=== PATIENT | female | born 1975 | race Caucasian/White ===

== ENCOUNTER → 2019-02-03 | Day surgery (SDC) | payer BC ==
[2019-01-29 14:08] LABS: BASOPHILS # (AUTO) 0.1 (0.0-0.1); BASOPHILS % 0.9 % (0.0-1.0); EOSINOPHILS # (AUTO) 0.6 (0.0-0.4); EOSINOPHILS % 4.8 % (0.0-6.0); HEMATOCRIT 42.1 % (34.2-44.1); HEMOGLOBIN 14.1 g/dL (12.0-16.0); LYMPHOCYTES % 34.6 % (18.0-39.1); MEAN CORPUSCULAR HEMOGLOBIN 29.7 pg (28-32); MEAN CORPUSCULAR HGB CONC 33.5 g/dL (31-35); MEAN CORPUSCULAR VOLUME 88.6 fL (81-99); MONOCYTES # (AUTO) 0.9 (0.2-0.8); MONOCYTES % 7.8 % (4.4-11.3); NEUTROPHILS # (AUTO) 5.9 (2.1-6.9); NEUTROPHILS % 51.7 % (38.7-80.0); PLATELET COUNT 423 x10e3/uL (140-360); RED BLOOD COUNT 4.75 x10e6/uL (3.6-5.1); RED CELL DISTRIBUTION WIDTH 11.8 % (11.7-14.4)
[2019-01-29 14:25] LABS: ANION GAP 10.9 mmol/L (8-16); BLOOD UREA NITROGEN 13 mg/dL (7-26); BUN/CREATININE RATIO 16 (6-25); CALCIUM 9.8 mg/dL (8.4-10.2); CARBON DIOXIDE 26 mmol/L (22-29); CHLORIDE 102 mmol/L (98-107); CREATININE, SERUM 0.81 mg/dL (0.57-1.11); EST GLOMERULAR FILTRATION RATE > 60 ML/MIN (60-); GLUCOSE 84 mg/dL (74-118); POTASSIUM 3.9 mmol/L (3.5-5.1); SODIUM 135 mmol/L (136-145)
[~2019-02-03] MED LIST: CEFAZOLIN SOD 1 GM/NS 50ML 100 ML IV ONE; DEXAMETHASONE SOD PHOS INJ 4 MG/ML VIAL ONE; EYE LUBRICANT OPTH OINT 3.5GM TUBE OP ONE; FENTANYL CITRATE/PF 100MCG/2 ML INJ ONE; GLYCOPYRROLATE INJ 1MG/ 5 ML SYR ONE; HYDROCODONE/APAP 5MG-325MG TAB ONE; KETOROLAC TROMETHAMINE 30 MG/ML VIAL ONE; KLONOPIN1 MG PO; KLONOPIN2 MG PO; LAMICTAL100 MG PO; LEVOTHYROXINE50 MCG PO; LIDOCAINE HCL 2% LOCAL INJ 5 ML SDV VIAL INJ ONE; LINZESS PO; LITHIUM CARBON600 MG PO; METOCLOPRAMIDE HCL 10 MG/2ML VIAL ONE; MIDAZOLAM HCL 2 MG/2 ML VIAL ONE; NEOSTIGMINE 5 MG/5ML SYR ONE; ONDANSETRON HCL INJ 2MG/ML 2ML 2 MG/ML VIAL ONE; PROPOFOL IV EMULSION 10 MG/ML 20 ML VIAL ONE; ROCURONIUM BROMIDE 10 MG/ML 5ML VIAL ONE; SCOPOLAMINE 1.5 MG PATCH ONE; SEVOFLURANE INHAL SOLN 250 ML PEN BTL ONE; TRAZODONE HCL100 MG PO; XANAX2 MG; ZYPREXA5 MG PO
--- OUTSIDE RECORDS SUMMARY | 2019-02-03 05:20 | XMS REPORT | Clinical Summary ---
Author Author [employer] Organization [employer] Address Unknown Phone Unavailable Care Team Providers Care Addictions Counselor Name Role Phone Asked, No Pcp PCP Unavailable Allergies Comments Active Allergy Reactions Severity Noted Date Adhesive Tape-Silicones 01/04/2019 Latex 01/04/2019 Medications End Date Status Medication Sig Dispensed Refills Start Date Active sertraline (ZOLOFT) 100 Take 150 mg 0 10/07/201 MG tablet by mouth 8 daily. Active Problems Not on file Encounters Care Team Description Date Type Specialty Morgan Bland DO Nonintractable episodic headache, unspecified headache type (Primary Dx); Right ovarian cyst 01/04/2019 Emergency Emergency Medicine 01/04/2019 Travel after 02/02/2018 Social History Date Tobacco Use Types Packs/Day Years Used Never Smoker Smokeless Tobacco: Never Used Alcohol Use Drinks/Week oz/Week Comments No Alcohol Habits Answer Date Recorded How often do you have a drink containing alcohol? Never 01/04/2019 How many drinks containing alcohol do you have on Not asked a typical day when you are drinking? How often do you have six or more drinks on one Not asked occasion? Sex Assigned at Date Recorded Not on file Industry Job Start Date Occupation Not on file Not on file Not on file Travel End Travel History Travel Start No recent travel history available. Last Filed Vital Signs Time Taken Vital Sign Reading 01/04/2019 1:00 PM [employer] Blood Pressure 112/70 01/04/2019 1:00 PM [employer] Pulse 86 01/04/2019 1:00 PM [employer] Temperature 37.1 C (98.7 F) 01/04/2019 1:00 PM [employer] Respiratory Rate 18 01/04/2019 1:00 PM [employer] Oxygen Saturation 94% - Inhaled Oxygen - Concentration 01/04/2019 9:31 AM [employer] Weight 65 kg (143 lb 4.8 oz) 01/04/2019 9:31 AM [employer] Height 152.4 cm (5') 01/04/2019 9:31 AM [employer] Body Mass Index 27.99 Plan of Treatment Health Maintenance Due Date Last Done Comments CERVICAL CANCER SCREENING 02/13/1996 INFLUENZA VACCINE 06/25/2018 Procedures Comments Procedure Name Priority Date/Time Associated Diagnosis CT ABDOMEN PELVIS W STAT 01/04/2019 CONTRAST 11:46 AM [employer] ESTIMATED GFR STAT 01/04/2019 10:15 AM [employer] LIPASE LEVEL STAT 01/04/2019 10:15 AM [employer] COMPREHENSIVE METABOLIC STAT 01/04/2019 PANEL 10:15 AM [employer] HC COMPLETE BLD COUNT STAT 01/04/2019 W/AUTO DIFF 10:15 AM [employer] URINALYSIS SCREEN AND STAT 01/04/2019 MICROSCOPY, WITH REFLEX 10:15 AM [employer] TO CULTURE ECG ED PRELIMINARY Routine 01/04/2019 INTERPRETATION 9:42 AM [employer] ECG 12-LEAD STAT 01/04/2019 9:32 AM [employer] after 02/02/2018 Results * CT Abdomen Pelvis W Contrast (01/04/2019 11:46 AM [employer]) Narrative Performed At EXAMINATION:CT ABDOMEN PELVIS W CONTRAST [facility] CLINICAL HISTORY:Abd painunspecified TECHNIQUE: Multiple axial images of the abdomen and pelvis were obtained following intravenous administration of iodinated contrast. Sagittal and coronal computerized reformatted images were also obtained.Automatic exposure control and iterative reconstruction techniques used to reduce dose. COMPARISON:None. FINDINGS: The liver, gallbladder, spleen, pancreas, adrenals, and kidneys are within normal limits No significant lymphadenopathy or free fluid present There is no evidence of appendicitis Moderate amount retained stool in colon Pelvis: An enhancing 2 cm cyst is present in the right ovary. Small amount of free fluid in the pelvis. Ovarian cyst could be further evaluated with ultrasound as indicated clinically Small/moderate hiatal hernia IMPRESSION: Nonspecific 2 cm enhancing cyst in the right ovary with a small amount of free fluid present in the pelvis Moderate amount retained stool [facility]-[id number] Procedure Note Hm Interface, Radiology Results Incoming - 01/04/2019 11:53 AM [employer] EXAMINATION: CT ABDOMEN PELVIS W CONTRAST CLINICAL HISTORY: Abd pain unspecified TECHNIQUE: Multiple axial images of the abdomen and pelvis were obtained following intravenous administration of iodinated contrast. Sagittal and coronal computerized reformatted images were also obtained.Automatic exposure control and iterative reconstruction techniques used to reduce dose. COMPARISON: None. FINDINGS: The liver, gallbladder, spleen, pancreas, adrenals, and kidneys are within normal limits No significant lymphadenopathy or free fluid present There is no evidence of appendicitis Moderate amount retained stool in colon Pelvis: An enhancing 2 cm cyst is present in the right ovary. Small amount of free fluid in the pelvis. Ovarian cyst could be further evaluated with ultrasound as indicated clinically Small/moderate hiatal hernia IMPRESSION: Nonspecific 2 cm enhancing cyst in the right ovary with a small amount of free fluid present in the pelvis Moderate amount retained stool [facility]-[id number] Performing Organization Address City/[facility] Phone Number [facility] [address] [place] [address] * Urinalysis screen and microscopy, with reflex to culture (01/04/2019 10:15 AM [employer]) Specimen site Clean catch [facility] Color, UA Yellow [facility] Appearance, UA Clear [facility] Specific gravity, UA 1.005 1.001 - 1.035 [facility] pH, UA 5.0 5.0 - 8.5 [facility] Protein, UA Negative Negative [facility] Glucose, UA Negative Negative [facility] Ketones, UA Negative Negative [facility] Bilirubin, UA Negative Negative [facility] Blood, UA Negative Negative [facility] Nitrite, UA Negative Negative [facility] Urobilinogen, UA Negative <2.0 [facility] Leukocyte esterase, UA Negative Negative [facility] Epithelial cells, UA Many /HPF [facility] WBC, UA 0-5 0 - 4 /HPF [facility] RBC, UA 0-5 0 - 5 /HPF [facility] Bacteria, UA Trace None seen [facility] Yeast, UA None seen [facility] Yeast with pseudohyphae, None seen [facility] Specimen Urine Performing Organization Address City/[facility]/Zipcode Phone Number [address] [place] [address] PATHOLOGY AND GENOMIC MEDICINE [address] * Estimated GFR (01/04/2019 10:15 AM [employer]) Estimated GFR >=90 mL/min/1.73 m2 [facility] Comment: [facility] CatergoryUnitsInte rpretation G1 >=90 Normal or high G2 60-89Mildly decreased [id number] Mildly to moderately decreased [id number] Moderately to severely decreased G4 15-29Severely decreased G5 <15Kidney failure The eGFR was calculated using the Chronic Kidney Disease Epidemiology Collaboration (CKD-EPI) equation. Interpretation is based on recommendations of the National Kidney Foundation-Kidney Disease Outcomes Quality Initiative (NKF-KDOQI) published in 2014. Specimen Plasma specimen Performing Organization Address City/[facility]/Zipcode Phone Number [address] [place] [address] PATHOLOGY AND GENOMIC MEDICINE [address] * CBC with platelet and differential (01/04/2019 10:15 AM [employer]) WBC 9.25 4.50 - 11.00 k/uL [facility] RBC 4.73 4.20 - 5.50 m/uL [facility] HGB 14.3 12.0 - 16.0 g/dL [facility] HCT 43.0 37.0 - 47.0 % [facility] MCV 90.9 82.0 - 100.0 fL [facility] MCH 30.2 27.0 - 34.0 pg [facility] MCHC 33.3 31.0 - 37.0 g/dL [facility] RDW - SD 40.6 37.0 - 55.0 fL [facility] MPV 9.3 8.8 - 13.2 fL [facility] Platelet count 416 (H) 150 - 400 k/uL [facility] Nucleated RBC 0.00 /100 WBC [facility] Neutrophils 56.1 39.0 - 69.0 % [facility] Lymphocytes 32.3 25.0 - 45.0 % [facility] Monocytes 8.2 0.0 - 10.0 % [facility] Eosinophils 2.2 0.0 - 5.0 % [facility] Basophils 1.0 0.0 - 1.0 % [facility] Specimen Blood Performing Organization Address [facility] Phone Number [address] [place] [address] PATHOLOGY AND GENOMIC MEDICINE [address] * Lipase level (01/04/2019 10:15 AM [employer]) Lipase 70 (H) 13 - 60 U/L [facility] Specimen Plasma specimen Performing Organization Address [facility] Phone Number [address] [place] [address] PATHOLOGY AND GENOMIC MEDICINE [address] * Comprehensive metabolic panel (01/04/2019 10:15 AM [employer]) Sodium 140 135 - 148 mEq/L [facility] Potassium 3.6 3.5 - 5.0 mEq/L [facility] Chloride 104 98 - 112 mEq/L [facility] CO2 26 24 - 31 mEq/L [facility] Anion gap 10@ANIO 7 - 15 mEq/L [facility] BUN 10 6 - 20 mg/dL [facility] Creatinine 0.60 0.50 - 0.90 mg/dL [facility] Glucose 67 65 - 99 mg/dL [facility] Calcium 9.6 8.3 - 10.2 mg/dL [facility] Protein 8.1 6.3 - 8.3 g/dL [facility] Comment: [facility] 4.6-7.0 g/dL 1 week 4.4-7.6 g/dL 7 months-1year 5.1-7.3 g/dL 1-2 years5.6-7 .5 g/dL >3 years6.0-8 .0 g/dL 18-150 6.3-8.3 g/dL Albumin 4.7 3.5 - 5.0 g/dL [facility] A/G ratio 1.4 0.7 - 3.8 [facility] Alkaline phosphatase 75 35 - 104 U/L [facility] AST 19 10 - 35 U/L [facility] ALT 21 5 - 50 U/L [facility] Total bilirubin 0.3 0.0 - 1.2 mg/dL [facility] Specimen Plasma specimen Performing Organization Address [facility] Phone Number [facility] DEPART[facility] OF [address] [place] [address] [place] [address] PATHOLOGY AND GENOMIC MEDICINE [address] [place], [place] [id number] [place] [address] * ECG ED Preliminary Interpretation - Not an Order (01/04/2019 9:42 AM [employer]) Narrative Performed At Morgan Bland DO 01/04/20191:11 PM ECG ED Preliminary Interpretation - Not an Order Performed by: Morgan Bland DO Authorized by: Morgan Bland DO ECG reviewed by ED Physician in the absence of a stores assistant: yes Interpretation: Interpretation: normal Rate: ECG rate:85 ECG rate assessment: normal Rhythm: Rhythm: sinus rhythm Ectopy: Ectopy: none QRS: QRS axis:Normal QRS intervals:Normal Conduction: Conduction: normal ST segments: ST segments:Normal T waves: T waves: normal Comments: Read at 0932 * ECG 12 lead (01/04/2019 9:32 AM [employer]) Ventricular rate 85 [facility] Atrial rate 85 [facility] MO interval 132 [facility] QRSD interval 76 [facility] QT interval 362 [facility] QTC interval 430 [facility] P axis 1 51 [facility] QRS axis 1 65 [facility] T wave axis 53 [facility] EKG impression Normal sinus rhythm-Normal [facility] ECG-No previous ECGs available- Narrative Performed At Performing Organization Address City/State/[facility] Phone Number [facility] MUSE [address] [place] [address] after 02/02/2018 Insurance Payer Benefit Subscriber ID Type Phone Address Plan / Group VICK SHERMAN xxxxxxxxxxxx O KENDRA MONTGOMERY
--- OUTSIDE RECORDS SUMMARY | 2019-02-03 05:20 | XMS REPORT | CCD ---
Author Author Auto Generated Organization [facility] Address Unknown Phone Unavailable Care Team Providers Care Product Analyst Name Role Phone Julio Burt CP Allergies, Adverse Reactions, Alerts Substance Reaction Status codeine Active Problem List Condition Effective Dates Status Anxiety Resolved Vital Signs Most recent to oldest [Reference Range]: 1 Height 152.40 cm (01/11/2013 18:46:00) Weight 71.818 kg (01/11/2013 18:46:00) Results URINALYSIS Most recent to oldest [Reference Range]: 1 UA Turbidity [Clear] Clear (01/11/2013 19:50:00) UA Color Ltyellow *NA* (01/11/2013 19:50:00) UA pH [5.0-8.0] 6.0 (01/11/2013 19:50:00) UA Spec Grav [<=1.030] 1.006 (01/11/2013 19:50:00) UA Glucose [Negative mg/dL] Negative mg/dL *NA* (01/11/2013 19:50:00) UA Blood [Negative] Moderate *ABN* (01/11/2013 19:50:00) UA Ketones [Negative mg/dL] Negative mg/dL *NA* (01/11/2013 19:50:00) UA Protein [Negative mg/dL] Negative mg/dL (01/11/2013 19:50:00) UA Urobilinogen [0.1-1.0 mg/dL] <=1.0 mg/dL *NA* (01/11/2013 19:50:00) UA Bili [Negative] Negative *NA* (01/11/2013 19:50:00) UA Leuk Est [Negative] Trace *ABN* (01/11/2013 19:50:00) UA Nitrite [Negative] Negative (01/11/2013 19:50:00) UA WBC [0-5 /HPF] 2 /HPF (01/11/2013 19:50:00) UA RBC [0-2 /HPF] <1 /HPF (01/11/2013 19:50:00) UA Bacteria [None Seen /HPF] Occasional /HPF *NA* (01/11/2013 19:50:00) UA Sq Epi [Few /LPF] Occasional /LPF *NA* (01/11/2013 19:50:00) CHEMISTRY Most recent to oldest [Reference Range]: 1 [place] [address] mIU/mL 1 *NA* (01/11/2013 20:27:00) U Preg [Negative] Positive *ABN* (01/11/2013 19:50:00) 1Interpretive Data: Reference Range: Male 0 - 5 mIU/mL Non- Female 0 - 5 mIU/mL Note: hCG result should be used in conjunction with symptoms, results of other tests, and clinical impressions. Weeks of Gestation hCG (mIU/mL) 3 6 - 71 4 10-750 5 217 - 7,138 6 158 -31,795 7 3,697 - 163,563 8 32,065 - 149,571 9 63,803 - 151,410 10 46,506 - 186,977 11 27,832 - 210,612 14 13,950 - 62,530 15 12,039 - 70,971 16 9,040 - 56,451 17 8,175 - 55,868 18 8,099 - 58,176 HEMATOLOGY Most recent to oldest [Reference Range]: 1 WBC [3.7-10.4 K/CMM] 13.5 K/CMM *HI* (01/11/2013 20:27:00) RBC [4.20-5.40 M/CMM] 4.67 M/CMM (01/11/2013 20:27:00) Hgb [12.0-16.0 g/dL] 14.5 g/dL (01/11/2013 20:27:00) Hct [36.0-48.0 %] 43.1 % (01/11/2013:27:00) MCV [81.0-99.0 fL] 92.3 fL (01/11/2013::00) MCH [27.0-31.0 pg] 31.0 pg (01/11/2013:00) MCHC [32.0-36.0 g/dL] 33.6 g/dL (01/11/2013::00) RDW [11.5-14.5 %] 12.6 % (01/11/2013::00) Platelet [133-450 K/CMM] 347 K/CMM (01/11/2013::00) MPV [7.4-10.4 fL] 8.3 fL (01/11/2013) Segs [45.0-75.0 %] 60.6 % (01/11/2013::) Lymphocytes [20.0-40.0 %] 30.8 % (01/11/2013:) Monocytes [2.0-12.0 %] 6.0 % (01/11/2013::00) Eosinophils [0.0-4.0 %] 2.2 % (01/11/2013::) Basophils [0.0-1.0 %] 0.4 % (01/11/2013) Segs-Bands # [1.5-8.1 K/CMM] 8.2 K/CMM *HI* (01/11/2013::) Lymphocytes # [1.0-5.5 K/CMM] 4.2 K/CMM (01/11/2013:27:00) Monocytes # [0.0-0.8 K/CMM] 0.8 K/CMM (01/11/2013::00) Eosinophils # [0.0-0.5 K/CMM] 0.3 K/CMM (01/11/2013:27:00) Basophils # [0.0-0.2 K/CMM] 0.0 K/CMM (01/11/2013:27:00) Procedures Procedures Date Related Diagnosis section 1 1x 2
--- OUTSIDE RECORDS SUMMARY | 2019-02-03 05:20 | XMS REPORT | Continuity of Care Document ---
Author Author [facility] Address Unknown Phone Unavailable Problems Problem Status Onset Date Classification Date Reported Comments Source Other general symptoms and signs 07/02/2018 01/12/2019 [facility] R68.89 - OTHER GENERAL SYMPTOMS AND SIG Active 06/23/2018 [facility] BLEEDING 14WKS Active 01/11/2013 [place] Anxiety Resolved Problem 01/12/2019 [facility] Anxiety Resolved Problem 01/13/2013 [facility] Medications Medication Details Route Status Patient Instructions Ordering Provider Order Date Source Allergies, Adverse Reactions, Alerts Substance Category Reaction Severity Reaction type Status Date Reported Comments Source codeine drug allergy Allergy Active [facility] Immunizations Immunization Date Given Site Status Last Updated Comments Source Results Order Name Results Value Reference Range Date Interpretation Comments Source Brain w/wo contrast MRI Brain w/wo contrast MRI PATIENT NAME: PAULETTE ANNA : 1975; Age: 43 years y/o Female MR: [id number] STUDY: Brain w/wo contrast MRI 06/25/2018 9:52 AM CDT ORDERING PHYSICIAN: Arielle Hedrick MD CLINICAL INDICATION: R68.89 Other general symptoms and signs - R68.89 Other general symptoms and signs; COMPARISON: None TECHNIQUE : Multiplanar imaging of the brain was obtained both prior to and after uncomplicated IV administration of 13 cc Dotarem. FINDINGS: BRAIN PARENCHYMA: There is no hemorrhage, mass lesion, extra axial collection, cerebral edema, or mass effect. Diffusion sequences are normal. Brain volume is age-appropriate. There is no focal berry or white matter signal abnormality. The cerebellar tonsils are above foramen magnum. The pituitary gland is age- appropriate. There is no abnormal enhancement. CEREBELLOPONTINE REGIONS AND SKULL BASE: The cerebellopontine angles appear unremarkable. No skull base abnormality is seen. VENTRICLES/SULCI/CISTERNS: The ventricles are normal in size and configuration. The basal cisterns are patent. VISUALIZED VESSELS: Major intracranial flow voids are preserved. ORBITS, VISUALIZED PARANASAL SINUSES AND MASTOIDS: There is a left maxillary mucous retention cyst. The mastoid air cells are clear. No orbital pathology is seen. IMPRESSION: 1. Normal brain. Specifically, there is no evidence of previous ischemia or demyelinating changes 2. Small left maxillary mucous retention cyst, likely clinically insignificant 06/25/2018 - - Read by: Sal Blanca MD Dictated Date/time: 06/25/18 12:39 Electronically Signed by: Sal Blanca MD 06/25/18 13:21 FINAL REPORT ANUJA Zuniga [place] [address] mIU/mL 01/12/2013 NA 1Interpretive Data: Reference Range: Male 0 - [...] 8,175 - 55,868 18 8,099 - 58,176 [facility] HEMATOLOGY Lymphocytes # 4.2 K/CMM 1.0 - 5.5 01/12/2013 Normal [facility] HEMATOLOGY Monocytes 6.0 % 2.0 - 12.0 01/12/2013 Normal [facility] HEMATOLOGY Segs-Bands # 8.2 K/CMM 1.5 - 8.1 01/12/2013 HI [facility] HEMATOLOGY Eosinophils # 0.3 K/CMM 0.0 - 0.5 01/12/2013 Normal [facility] HEMATOLOGY Monocytes # 0.8 K/CMM 0.0 - 0.8 01/12/2013 Normal [facility] HEMATOLOGY Basophils 0.4 % 0.0 - 1.0 01/12/2013 Normal [facility] HEMATOLOGY Eosinophils 2.2 % 0.0 - 4.0 01/12/2013 Normal [facility] HEMATOLOGY Basophils # 0.0 K/CMM 0.0 - 0.2 01/12/2013 Normal [facility] HEMATOLOGY Segs 60.6 % 45.0 - 75.0 01/12/2013 Normal [facility] HEMATOLOGY Lymphocytes 30.8 % 20.0 - 40.0 01/12/2013 Normal [facility] HEMATOLOGY MCV 92.3 fL 81.0 - 99.0 01/12/2013 Normal [facility] HEMATOLOGY Hct 43.1 % 36.0 - 48.0 01/12/2013 Normal [facility] HEMATOLOGY MCHC 33.6 g/dL 32.0 - 36.0 01/12/2013 Normal [facility] HEMATOLOGY MCH 31.0 pg 27.0 - 31.0 01/12/2013 Normal [facility] HEMATOLOGY Hgb 14.5 g/dL 12.0 - 16.0 01/12/2013 Normal [facility] HEMATOLOGY RBC 4.67 M/CMM 4.20 - 5.40 01/12/2013 Normal [facility] HEMATOLOGY WBC 13.5 K/CMM 3.7 - 10.4 01/12/2013 HI [facility] HEMATOLOGY Platelet 347 K/CMM 133 - 450 01/12/2013 Normal [facility] HEMATOLOGY MPV 8.3 fL 7.4 - 10.4 01/12/2013 Normal [facility] HEMATOLOGY RDW 12.6 % 11.5 - 14.5 01/12/2013 Normal [facility] CHEMISTRY U Preg Positive *ABN* (01/11/2013 19:50:00) Negative 01/12/2013 ABN [facility] URINALYSIS UA Urobilinogen <=1.0 mg/dL
*NA*
(01/11/2013 19:50:00) <sup> </sup> 0.1 - 1.0 01/12/2013 NA [facility] URINALYSIS UA Color Ltyellow 01/12/2013 NA [facility] URINALYSIS UA Leuk Est Trace *ABN* (01/11/2013 19:50:00) Negative 01/12/2013 ABN [facility] URINALYSIS UA WBC 2 /HPF 0 - 5 01/12/2013 Normal [facility] URINALYSIS UA Sq Epi Occasional /LPF *NA* (01/11/2013 19:50:00) Few 01/12/2013 [facility] URINALYSIS UA Bacteria Occasional /HPF *NA* (01/11/2013 19:50:00) None Seen 01/12/2013 NA [facility] URINALYSIS UA RBC null 0 - 2 01/12/2013 Normal [facility] URINALYSIS UA Ketones Negative mg/dL *NA* (01/11/2013 19:50:00) Negative 01/12/2013 NA [facility] URINALYSIS UA Bili Negative *NA* (01/11/2013 19:50:00) Negative 01/12/2013 NA [facility] URINALYSIS UA Nitrite Negative (01/11/2013 19:50:00) Negative 01/12/2013 Normal [facility] URINALYSIS UA Blood Moderate *ABN* (01/11/2013 19:50:00) Negative 01/12/2013 ABN [facility] URINALYSIS UA Glucose Negative mg/dL *NA* (01/11/2013 19:50:00) Negative 01/12/2013 NA [facility] URINALYSIS UA Spec Grav 1.006 <=1.030 01/12/2013 Normal [facility] URINALYSIS UA Turbidity Clear (01/11/2013 19:50:00) Clear 01/12/2013 Normal [facility] URINALYSIS UA Protein Negative mg/dL (01/11/2013 19:50:00) Negative 01/12/2013 Normal [facility] URINALYSIS UA pH 6.0 5.0 - 8.0 01/12/2013 Normal [facility] Vital Signs Vital Sign Value Date Comments Source Weight 71.818 01/12/2013 [facility] Height 152.40 cm 01/12/2013 [facility] Encounters Location Location Details Encounter Type Encounter Number Reason For Visit Attending Provider ADM Date DC Date Status Source [facility] Emergency [id number] BLEEDING 14WKS ANY DUNN 01/11/2013 01/11/2013 Active [facility] [id number] Arielle Floresauser 06/25/2018 06/26/2018 [facility] [place] Procedures Procedure Code Date Perfomer Comments Source section<sup>1</sup> [id number] x 2 [facility] section <sup>1</sup> [id number] 1x 2 [facility]
--- OUTSIDE RECORDS SUMMARY | 2019-02-03 05:20 | XMS REPORT | Summary of Care ---
Author Author [facility] [place] Organization [facility] [place] [facility] Address Unknown Phone Unavailable Encounter HQ Encntr_aliamari(FIN) [id number] Date(s): 06/25/18 - 06/25/18 [facility] [place] [address], [place] [id number] [phone] Encounter Diagnosis Other general symptoms and signs (Final) - 07/01/18 Discharge Disposition: Home or Self Care Attending Physician: Arielle Hedrick MD Referring Physician: Arielle Hedrick MD Vital Signs No data available for this section Problem List Condition Effective Dates Status Health Status Informant Anxiety(Confirmed) Resolved Allergies, Adverse Reactions, Alerts Substance Reaction Severity Status codeine Active Medications No data available for this section Results No data available for this section Immunizations No data available for this section Procedures Procedure Date Related Diagnosis Body Site Status section1 Completed 1x 2 Social History No data available for this section Assessment and Plan No data available for this section
[2019-02-03 09:36] VITALS: BP 90/49
--- NOTE | 2019-02-03 14:54 | Operative Report ---
DATE OF PROCEDURE: 02/03/2019 SURGEON: Dane Darling MD PREOPERATIVE DIAGNOSES: Abdominal pain, abdominal mass. 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 PROCEDURES: Diagnostic laparoscopy, laparoscopic cecopexy. INTERLOCKER MAINTAINER: None. ANESTHESIA: General endotracheal. INDICATIONS AND FINDINGS: The patient is a 43-year-old female, complains of painful bulge in right lower abdomen and groin area. At surgery, the only abnormal finding was a partial volvulus of the cecum. The cecum was flipped upon itself and projected towards the right upper quadrant. Large amount of stool in the cecum, but no clear obstruction. There was no hernia seen. There was a tiny cyst on the right ovary. Small bowel all appeared normal. Liver, gallbladder, stomach all appeared normal. The remainder of the colon appeared normal. TECHNIQUE: After adequate general endotracheal anesthesia with the patient in supine position, the abdomen was prepped and draped in sterile fashion with ChloraPrep solution. Skin in the umbilicus was infiltrated with 0.5% Marcaine. Incision made. Abdominal wall was elevated and Veress needle was introduced. Pneumoperitoneum was then created. A 10-mm trocar and cannula were then passed through this wound. Laparoscopic camera was introduced. Initial laparoscopy revealed no free fluid. Small bowel was seen, appeared normal. Liver and stomach appeared normal. Gallbladder appeared normal. Examination of the right colon revealed that the cecum was flipped and right colon flipped up to the upper abdomen with the cecum in the left upper quadrant. There was a large amount of stool in the cecum, it was otherwise not distended, appeared viable. Small bowel all appeared normal, it was not obstructed. There were no enlarged lymph nodes. In the pelvis, the right ovary was seen, had a tiny cyst on it, but otherwise appeared normal. There was no hernia seen. A 5-mm trocar and cannula were placed in the epigastrium and a 5-mm trocar and cannula were placed in the lower midline. The cecum was positioned back in its normal position and using #0 Ethibond Endo knots, cecopexy was done suturing the cecum into its normal position to the abdominal wall. Once this was completed, the small bowel was examined. Once again, there were no enlarged lymph nodes. No inflammatory changes. Remainder of the colon appeared normal. Wound was irrigated with saline, inspected for hemostasis, which was seen to be adequate. Instruments and cannulas were then removed. Pneumoperitoneum was evacuated. Wounds were closed. Fascia in the larger trocar wound closed with #0 Vicryl. Skin to all wounds closed with ella. Sterile dressings applied to each wound. The patient tolerated procedure well. ESTIMATED BLOOD LOSS: Less than 5 mL. There were no complications. All counts were correct. The patient was taken to the recovery room in satisfactory condition. MD MERCEDEZ Chino/MODL /[id number] cc: Erica Whitten MD
== END | disposition home or self-care (01) ==
LOC: OR 05:17
PROVIDERS: ATTEND Surgery
DX: K56.2 Volvulus (principal); Z01.812 Encounter for preprocedural laboratory examination; Z91.040 Latex allergy status; Z91.018 Allergy to other foods
CPT/HCPCS: 36415; 45399; 80048; 85025; 93005; J0690; J1100; J1885; J2001; J2250; J2405; J2704; J2765; J3490

== ENCOUNTER → 2019-02-10 | Outpatient (CLI) | payer BC ==
[~2019-02-10] MED LIST changes: -CEFAZOLIN SOD 1 GM/NS 50ML 100 ML IV ONE; -DEXAMETHASONE SOD PHOS INJ 4 MG/ML VIAL ONE; -EYE LUBRICANT OPTH OINT 3.5GM TUBE OP ONE; -FENTANYL CITRATE/PF 100MCG/2 ML INJ ONE; -GLYCOPYRROLATE INJ 1MG/ 5 ML SYR ONE; -HYDROCODONE/APAP 5MG-325MG TAB ONE; +IOPAMIDOL 370 MG/ML 200 ML INFUS..BTL INJ ONE; -KETOROLAC TROMETHAMINE 30 MG/ML VIAL ONE; -LIDOCAINE HCL 2% LOCAL INJ 5 ML SDV VIAL INJ ONE; -METOCLOPRAMIDE HCL 10 MG/2ML VIAL ONE; -MIDAZOLAM HCL 2 MG/2 ML VIAL ONE; -NEOSTIGMINE 5 MG/5ML SYR ONE; -ONDANSETRON HCL INJ 2MG/ML 2ML 2 MG/ML VIAL ONE; -PROPOFOL IV EMULSION 10 MG/ML 20 ML VIAL ONE; -ROCURONIUM BROMIDE 10 MG/ML 5ML VIAL ONE; -SCOPOLAMINE 1.5 MG PATCH ONE; -SEVOFLURANE INHAL SOLN 250 ML PEN BTL ONE; +SODIUM CHLORIDE 0.9% 50ML 50 ML ONE
--- NOTE | 2019-02-10 10:38 | Diagnostic Imaging Report ---
EXAM: CT Abdomen and Pelvis WITH contrast INDICATION: Abdominal pain COMPARISON: None. TECHNIQUE: Abdomen and pelvis were scanned utilizing a multidetector helical scanner from the lung base to the pubic symphysis after administration of IV contrast. Coronal and sagittal reformations were obtained. Of Dose modulation, iterative reconstruction, and/or weight based adjustment of the mA/kV was utilized to reduce the radiation dose to as low as reasonably achievable. IV CONTRAST: 100 mL of Isovue-370 ORAL CONTRAST: 900 cc water RADIATION DOSE: Total DLP: 291.69 mGy*cm Estimated effective dose: (DLP x 0.015 x size factor) mSv COMPLICATIONS: None FINDINGS: LINES and TUBES: None. LOWER THORAX: Lung bases clear. Heart size normal. HEPATOBILIARY: 2 mm hypodensities in the right lobe adjacent to the gallbladder, and in the left lobe, likely small cysts. No other focal hepatic lesions. No biliary ductal dilation. GALLBLADDER: No radio-opaque stones or sludge. No wall thickening. SPLEEN: No splenomegaly. PANCREAS: No focal masses or ductal dilatation. The pancreatic tail is suboptimally evaluated, not well differentiated from adjacent unopacified small bowel. ADRENALS: No adrenal nodules KIDNEYS/URETERS: Kidneys enhance symmetrically. No hydronephrosis. No cystic or solid mass lesions. No stones. GI TRACT: No abnormal distention, wall thickening, or evidence of bowel obstruction. There is a large volume of stool throughout the colon. Moderate fluid in the stomach and small bowel likely related water contrast. Appendix is normal. PELVIC ORGANS/BLADDER: Urinary bladder unremarkable. No discrete abnormal mass or fluid collection in the pelvis. LYMPH NODES: No dominant lymph node mass is seen in the abdomen, retroperitoneum or pelvis. VESSELS: Abdominal aorta, IVC and portal system unremarkable. Retroaortic left renal vein noted. As well taken care of PERITONEUM / RETROPERITONEUM: No pneumoperitoneum or ascites. BONES: No acute or suspicious bony lesions. SOFT TISSUES: Superficial surrounding soft tissue includes skin ella at the umbilicus. Minimal subcutaneous fat stranding in the right anterior pelvic wall likely from previous surgical site. IMPRESSION: 1. No CT evidence for acute abdominal or pelvic pathology. 2. Large volume of stool throughout the colon and particularly in the cecum. Staff: Nick Signed by: Dr. Francisco Javier Romero M.D. on 02/10/2019 10:35 AM
== END ==
LOC: CT 08:02
PROVIDERS: ATTEND Surgery
DX: R10.9 Unspecified abdominal pain (principal)
CPT/HCPCS: 74177; Q9967

== ENCOUNTER → 2019-08-27 | Outpatient (CLI) | payer BC ==
[~2019-08-27] MED LIST changes: +DIATRIZOATE MEGL/DIATRIZOA SOD 30 ML BTL PO ONE
--- NOTE | 2019-08-27 10:38 | Diagnostic Imaging Report ---
CT of the abdomen and pelvis, with contrast, 08/27/2019. History: Right lower quadrant abdominal mass. Comparison: 02/10/2019. Technique: Multidetector CT scanning of the abdomen and pelvis was performed from the level of the lung bases to the inferior pubic rami after intravenous and oral administration of contrast. Coronal and sagittal multiplanar reformations were obtained. RADIATION DOSE: Total DLP: 409 mGy*cm Dose modulation, iterative reconstruction, and/or weight based adjustment of the mA/kV was utilized to reduce the radiation dose to as low as reasonably achievable. Discussion: LUNG BASES: No visualized abnormalities. ABDOMEN: The liver, gallbladder, biliary tree, spleen, pancreas, adrenal glands, and kidneys are normal. The hepatic vein, portal vein, and splenic vein are patent. The abdominal aorta is within normal limits for size. A circumaortic left renal vein is noted. Moderate size hiatal hernia is present. There is no bowel dilatation or wall thickening. There is noted to be interposition of the ascending colon between the anterior aspect of the liver and the anterior aspect of the right hemidiaphragm. There is no evidence of adenopathy or free fluid. A tiny fat-containing umbilical hernia is present. PELVIS: The bladder, uterus, and adnexa are normal in appearance. There is no evidence of free fluid or adenopathy. BONES AND SOFT TISSUES: No acute abnormality. IMPRESSION: Moderate size hiatal hernia and anterior interposition of the right colon. No evidence of colonic mass, wall thickening, or obstruction. Otherwise unremarkable CT of the abdomen and pelvis. Signed by: Christopher Monte on 08/27/2019 10:35 AM
== END ==
LOC: CT 08:16
PROVIDERS: ATTEND Family Medicine
DX: R19.03 Right lower quadrant abdominal swelling, mass and lump (principal)
CPT/HCPCS: 36415; 74177; 82948; Q9967

== ENCOUNTER → 2020-07-08 | Outpatient (CLI) | payer BC ==
[~2020-07-08] MED LIST changes: -DIATRIZOATE MEGL/DIATRIZOA SOD 30 ML BTL PO ONE; -IOPAMIDOL 370 MG/ML 200 ML INFUS..BTL INJ ONE; -SODIUM CHLORIDE 0.9% 50ML 50 ML ONE
--- NOTE | 2020-07-08 15:54 | Diagnostic Imaging Report ---
EXAM: US ABDOMEN LIMITED DATE: 07/08/2020 2:58 PM INDICATION: Painful subcutaneous nodule along the right aspect of prior scar COMPARISON: CT abdomen/pelvis with contrast from 08/27/2019 FINDINGS: Limited sonographic images are obtained of the right lower quadrant anterior abdominal wall in the area of concern. There is a heterogeneous soft tissue lesion identified within the right lower quadrant anterior abdominal wall measuring 1.7 x 1.8 x 2.0 cm. This lesion demonstrates no significant internal vascularity. In retrospect, a similar sized soft tissue density was noted in the prior CT examination from 08/27/2019 within the right lower quadrant anterior abdominal wall. IMPRESSION: Nonvascular soft tissue lesion identified within the right lower quadrant anterior abdominal wall. In light of history, this may represent postsurgical change but is not definitively characterized and other soft tissue mass cannot be entirely excluded on the excluded on the basis of this ultrasound examination. Further evaluation could be performed with dedicated MRI if clinically indicated. Alternatively, consider follow-up examination to assess for stability. Signed by: Dr. Robin Randle MD on 07/08/2020 3:50 PM
--- NOTE | 2020-07-08 15:57 | Diagnostic Imaging Report ---
EXAM: US TRANSVAGINAL DATE: 07/08/2020 3:04 PM INDICATION: Pelvic pain COMPARISON: CT abdomen/pelvis with contrast from 08/27/2019 FINDINGS: The uterus is surgically absent. The right ovary measures 3.0 x 21.9 x 2.5 cm. The left ovary measures 3.3 x 1.5 x 2.3 cm. Vascularity is preserved bilaterally. Normal-sized follicles are noted bilaterally. A dominant follicle is identified within the right ovary measuring 1.3 x 1.2 x 1.4 cm. No abnormal adnexal masses are identified. No free fluid is visualized within the pelvis. IMPRESSION: Status post hysterectomy. Otherwise, unremarkable pelvic ultrasound examination. Signed by: Dr. Robin Randle MD on 07/08/2020 3:54 PM
== END ==
LOC: US 14:38
PROVIDERS: ATTEND Family Medicine
DX: R22.2 Localized swelling, mass and lump, trunk (principal); R10.2 Pelvic and perineal pain
CPT/HCPCS: 76705; 76830

== ENCOUNTER → 2020-09-26 | Day surgery (SDC) | payer BC, OTHER ==
[2020-09-22 11:10] LABS: BASOPHILS # (AUTO) 0.1 (0.0-0.1); BASOPHILS % 0.9 % (0.0-1.0); EOSINOPHILS # (AUTO) 0.1 (0.0-0.4); EOSINOPHILS % 1.9 % (0.0-6.0); HEMATOCRIT 43.1 % (34.2-44.1); HEMOGLOBIN 14.2 g/dL (12.0-16.0); LYMPHOCYTES # (AUTO) 2.7 (1.0-3.2); LYMPHOCYTES % 35.8 % (18.0-39.1); MEAN CORPUSCULAR HEMOGLOBIN 28.7 pg (28-32); MEAN CORPUSCULAR HGB CONC 32.9 g/dL (31-35); MEAN CORPUSCULAR VOLUME 87.1 fL (81-99); MONOCYTES # (AUTO) 0.6 (0.2-0.8); MONOCYTES % 7.9 % (4.4-11.3); NEUTROPHILS % 53.2 % (38.7-80.0); PLATELET COUNT 402 x10e3/uL (140-360); RED BLOOD COUNT 4.95 x10e6/uL (3.6-5.1); RED CELL DISTRIBUTION WIDTH 12.9 % (11.7-14.4)
[2020-09-22 11:35] LABS: ANION GAP 13.1 mmol/L (8-16); BLOOD UREA NITROGEN 9 mg/dL (7-26); BUN/CREATININE RATIO 13 (6-25); CALCIUM 9.2 mg/dL (8.4-10.2); CARBON DIOXIDE 25 mmol/L (22-29); CHLORIDE 107 mmol/L (98-107); EST GLOMERULAR FILTRATION RATE > 60 ML/MIN (60-); GLUCOSE 101 mg/dL (74-118); POTASSIUM 4.1 mmol/L (3.5-5.1); SODIUM 141 mmol/L (136-145)
[~2020-09-26] MED LIST changes: +BUPIVACAINE 0.25% 30ML SDV INJ ONE; +CEFAZOLIN SOD 1 GM VIAL ONE; +DEXAMETHASONE SOD PHOS INJ 4 MG/ML VIAL ONE; +FENTANYL CITRATE/PF 100MCG/2 ML INJ ONE; +GLYCOPYRROLATE INJ 0.2 MG/ML VIAL ONE; +KETOROLAC TROMETHAMINE 30 MG/ML VIAL ONE; +LIDOCAINE HCL 2% LOCAL INJ 5 ML SDV VIAL INJ ONE; +METOCLOPRAMIDE HCL 10 MG/2ML VIAL ONE; +NEOSTIGMINE 1 MG/ML 10ML VIAL ONE; +ONDANSETRON HCL INJ 2MG/ML 2ML 2 MG/ML VIAL ONE; +PROPOFOL IV EMULSION 10 MG/ML 20 ML VIAL ONE; +ROCURONIUM BROMIDE 10 MG/ML 5ML VIAL IV ONE; +SEVOFLURANE INHAL SOLN 250 ML PEN BTL ONE; -XANAX2 MG; +XANAX2 MG PO; +ZOLOFT50 MG PO
[2020-09-26 11:23] VITALS: BP 116/70
--- NOTE | 2020-09-26 11:29 | Operative Report ---
DATE OF PROCEDURE: 09/26/2020 SURGEON: Sathya Lazo MD PREOPERATIVE DIAGNOSIS: Mass of the right lower quadrant, probable endometrioma. POSTOPERATIVE DIAGNOSIS: Mass of the right lower quadrant, probable endometrioma. OPERATION PERFORMED: Resection of abdominal wall endometrioma. LEARNING SERVICES COORDINATOR: JAS Garnett. ANESTHESIA: General. COMPLICATIONS: None. ESTIMATED BLOOD LOSS: Minimal. DESCRIPTION OF PROCEDURE: With the patient lying in bed in the supine position under good general endotracheal anesthesia, the abdomen was prepped with Betadine solution and draped in the usual manner. An incision was made over the palpable mass on the right lower quadrant at the level of the old Pfannenstiel incision. Incision was taken down through the subcutaneous tissue and immediately a well encapsulated mass covered with the surrounding fatty tissue was encountered. This was slowly and carefully from the surrounding structures, it was stuck to the fascia and the section of fascia that was stuck underneath was resected and it was all then sent for pathological examination. The specimen was opened in the room and the classic chocolate contents were encountered. The specimen was sent for pathological examination. Gloves were changed. The area was then thoroughly irrigated. Hemostasis was ascertained. The fascial defect was then closed with 2-0 Vicryl suture. The subcutaneous tissue was approximated with 2-0 Vicryl and the skin was closed with subcuticular 5-0 Vicryl, benzoin, Steri-Strips, and dressings were applied. All layers were infiltrated on the way out with solution of 0.25% Marcaine. The patient tolerated the procedure well and returned to the recovery room in stable condition. Sathya Lazo MD JLR/MODL /[id number]
== END | disposition home or self-care (01) ==
LOC: OR 05:55
PROVIDERS: ATTEND Surgery
DX: N80.8 Other endometriosis (principal); Z01.810 Encounter for preprocedural cardiovascular examination; Z01.812 Encounter for preprocedural laboratory examination; Z20.828 Contact with and (suspected) exposure to other viral communicable diseases
CPT/HCPCS: 22903; 36415; 80048; 85025; 88305; 93005; J0690; J1100; J1885; J2001; J2405; J2704; J2710; J2765; J3010; U0002; 88304